=== PATIENT | female | born 1990 | race Caucasian/White ===

== ENCOUNTER → 2017-01-26 | Emergency (ER) | payer SELFPAY ==
[~2017-01-26] MED LIST: ACETAMINOPHEN 325 MG TABLET ONE
[2017-01-29 09:57] LABS: HCG UR OBC PASS
[2017-01-30 10:37] LABS: BLOOD UREA NITROGEN 11 mg/dL (7-18)
== END ==
LOC: ED 15:46
DX: R10.30 Lower abdominal pain, unspecified (principal)
CPT/HCPCS: 36415; 74020; 76830; 80048; 80076; 81003; 81025; 82040; 83690; 85025; 87086

== ENCOUNTER 2017-03-10 15:08 | Emergency (ER) | payer MEDICAID ==
[~2017-03-10] VITALS: Ht 157.5 cm; Wt 96.9 kg
[2017-03-10 15:10] VITALS: BP 132/74
[2017-03-10 16:03] LABS: HCG UR OBC PASS
== END 2017-03-10 17:06 | disposition home or self-care (01) ==
LOC: ED 17:00
DX: N39.0 Urinary tract infection, site not specified (principal); N30.90 Cystitis, unspecified without hematuria; J45.909 Unspecified asthma, uncomplicated; Z98.890 Other specified postprocedural states
CPT/HCPCS: 81001; 81025; 87086; 87210; 87491; 87591; 87808; 99284

== ENCOUNTER 2017-04-29 20:01 | Emergency (ER) | payer MEDICAID ==
[~2017-04-29] VITALS: Ht 154.9 cm; Wt 97.8 kg
[2017-04-29 20:09] VITALS: BP 126/81
[2017-04-29] MEDS ORDERED: LIDOCAINE 1%, 20ML SQ ONE (21:00)
[2017-04-29] MEDS ORDERED: LIDOCAINE 1%, 20ML ONE (22:00)
== END 2017-04-29 22:54 | disposition home or self-care (01) ==
LOC: ED 22:48
DX: S40.812A Abrasion of left upper arm, initial encounter (principal); J45.909 Unspecified asthma, uncomplicated; X58.XXXA Exposure to other specified factors, initial encounter; Y93.89 Activity, other specified; Y99.8 Other external cause status; Y92.89 Other specified places as the place of occurrence of the external cause
CPT/HCPCS: 96372; 99283; J3490

== ENCOUNTER 2017-11-26 22:10 | Emergency (ER) | payer SELFPAY ==
[~2017-11-26] VITALS: Ht 154.9 cm; Wt 97.4 kg
[2017-11-26 23:45] LABS: HCG UR SG 1.025 (1.003-1.030); MICROSCOPIC AUTO
[2017-11-26 23:48] LABS: CULTURE INDICATED? NO
[2017-11-27 00:10] VITALS: BP 136/88
== END 2017-11-27 00:10 | disposition home or self-care (01) ==
LOC: ED 23:46
DX: R11.0 Nausea (principal)
CPT/HCPCS: 81001; 81025; 99284

== ENCOUNTER 2019-03-31 17:41 | Emergency (ER) | payer MEDICAID | END 2019-03-31 18:56 | disposition left against medical advice (07) | LOC: ED 18:00 | DX: R10.9 Unspecified abdominal pain (principal); Z53.21 Procedure and treatment not carried out due to patient leaving prior to being seen by health care provider ==

== ENCOUNTER 2019-03-31 18:18 | Outpatient (CLI) | payer SELFPAY ==
[~2019-03-31] VITALS: Ht 154.9 cm; Wt 100.0 kg
== END 2019-03-31 22:30 | disposition home or self-care (01) ==
LOC: LDOP 18:18
PROVIDERS: ATTEND Obstetrics & Gynecology
DX: O26.893 Other specified pregnancy related conditions, third trimester (principal); R10.9 Unspecified abdominal pain; Z3A.32 32 weeks gestation of pregnancy
CPT/HCPCS: 36415; 59025; 76815; 80053; 80307; 81001; 85025; 87086; 94640; 99201; G0463

== ENCOUNTER 2020-08-08 16:59 | Emergency (ER) | payer MEDICAID ==
[~2020-08-08] VITALS: Ht 154.9 cm; Wt 104.2 kg
[2020-08-08 17:55] LABS: HCG UR SG 1.022 (1.003-1.030); MICROSCOPIC NOT IND
--- NOTE | 2020-08-08 18:00 | NUR ---
REPORT FROM BEBO MERLOS. FIRST CONTACT WITH PT. PT SITTING UP IN [facility], NAD NOTED. DENIES NEED FOR PAIN/NAUSEA MEDICATIONS. BP/SPO2 MONITOR ON, VSS. PT READIED FOR PELVIC EXAM. PT UPDATED TO POC (PELVIC/LABS/RESULTS/DISPO) AND DEMONSTRATES UNDERSTANDING.
[2020-08-08 18:22] LABS: BASOPHILS % (AUTO) 1 % (0-1); EOSINOPHILS % (AUTO) 2 % (1-7); LYMPHOCYTES % (AUTO) 31 % (22-44); MEAN CORPUSCULAR HEMOGLOBIN 25.8 pg (27.0-34.8); MEAN CORPUSCULAR HGB CONC 32.8 g/dL (32.4-35.8); MEAN PLATELET VOLUME 8.4 fL (7.4-10.4); MONOCYTES % (AUTO) 6 % (2-9); NEUTROPHILS % (AUTO) 61 % (42-75); PLATELET COUNT 403 x10^3/uL (130-400); RED CELL DISTRIBUTION WIDTH 16.6 % (9.6-15.2)
[2020-08-08 18:29] LABS: MD NO
[2020-08-08 18:32] LABS: ALBUMIN 3.6 g/dL (3.4-5.0); ANION GAP 3 mmol/L (5-15); CALCIUM 8.8 mg/dL (8.5-10.1); CHLORIDE 110 mmol/L (98-107)
--- NOTE | 2020-08-08 18:41 | NUR ---
PELVIC ULTRASOUND ORDERED PER DR MOHAN PINTO. POC IS US THEN D&C. ERP AWARE
--- NOTE | 2020-08-08 19:14 | NUR ---
PT RESTING IN [facility] USING CELL PHONE. NO DISTRESS NOTED. AWAITING PELVIC US
--- NOTE | 2020-08-08 19:53 | NUR ---
PT RETURNED FROM US. NAD NOTED. SITTING UP IN [facility], TYPING ON CELL PHONE
--- NOTE | 2020-08-08 20:33 | NUR ---
DC EDUCATION PROVIDED, PT DEMONSTRATES UNDERSTANDING. PT AMBULATED STEADILY TO DC WITH RN
[2020-08-08 20:34] VITALS: BP 126/70
== END 2020-08-08 20:35 | disposition home or self-care (01) ==
LOC: ED 18:19
DX: D25.9 Leiomyoma of uterus, unspecified (principal)
CPT/HCPCS: 36415; 76830; 80048; 81003; 81025; 82040; 85025; 99284

== ENCOUNTER 2021-03-07 20:24 | Emergency (ER) | payer MEDICAID ==
[~2021-03-07] VITALS: Ht 154.9 cm; Wt 107.3 kg
--- NOTE | 2021-03-07 21:10 | NUR ---
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 TO ROOM FROM LOBBY AT THIS TIME. AMBULATORY WITH STEADY GAIT.
[2021-03-07] MEDS ORDERED: ONDANSETRON 2MG/ML, 2ML IVPush ONE (21:30)
[2021-03-07] MEDS ORDERED: MORPHINE SULFATE 4 MG/ML, 1ML IVPush PRN (21:30)
[2021-03-07] MEDS ORDERED: SODIUM CHLORIDE FLUSH 10ML SYR IVF ONE (21:30)
[2021-03-07] MEDS ORDERED: MORPHINE SULFATE 4 MG/ML, 1ML ONE (21:38)
[2021-03-07] MEDS ORDERED: ONDANSETRON 2MG/ML, 2ML ONE (21:38)
[2021-03-07 21:39] LABS: MICROSCOPIC INDICATED
[2021-03-07 21:43] LABS: BASOPHILS % (AUTO) 1 % (0-1); EOSINOPHILS % (AUTO) 3 % (1-7); LYMPHOCYTES % (AUTO) 37 % (22-44); MEAN CORPUSCULAR HEMOGLOBIN 26.1 pg (27.0-34.8); MEAN CORPUSCULAR HGB CONC 32.9 g/dL (32.4-35.8); MEAN PLATELET VOLUME 8.1 fL (7.4-10.4); MONOCYTES % (AUTO) 5 % (2-9); NEUTROPHILS % (AUTO) 54 % (42-75); PLATELET COUNT 367 x10^3/uL (130-400); RED CELL DISTRIBUTION WIDTH 16.9 % (9.6-15.2)
--- NOTE | 2021-03-07 21:47 | NUR ---
PT PROVIDED URINE SAMPLE, UA COLLECTED AND SENT TO LAB. PIV PLACED, LABS DRAWN AND COLLECTED BY MAINTENANCE CONSTRUCTION HELPER. PAIN MEDS ADMIN PER OCT. PT PLACED ON OXYGEN FOR SAFETY. CALL LIGHT IN REACH. WARM BLANKET PROVIDED.
[2021-03-07 21:54] LABS: ALANINE AMINOTRANSFERASE 17 U/L (12-78); ALBUMIN 3.6 g/dL (3.4-5.0); ANION GAP 5 mmol/L (5-15); CALCIUM 8.6 mg/dL (8.5-10.1); CHLORIDE 109 mmol/L (98-107); CREATININE 0.66 mg/dL (0.55-1.02)
[2021-03-07 21:59] LABS: ALKALINE PHOSPHATASE 77 U/L (45-117); BILIRUBIN,TOTAL 0.2 mg/dL (0.2-1.0)
--- NOTE | 2021-03-07 22:10 | NUR ---
US AT BEDSIDE
--- NOTE | 2021-03-07 22:37 | NUR ---
RECEIVED N/O FOR CT
--- NOTE | 2021-03-07 22:39 | NUR ---
PT GOING TO CT.
--- NOTE | 2021-03-07 22:46 | NUR ---
REPORT FROM TALIA
[2021-03-07] MEDS ORDERED: OMNIPAQUE 350 MG/ML, 100ML BOTTLE ONE (22:53)
[2021-03-07 23:02] VITALS: BP 121/83
[2021-03-07] MEDS ORDERED: POTASSIUM CHLORIDE 20 MEQ PACKET PO ONE (23:28)
[2021-03-07] MEDS ORDERED: POTASSIUM CHLORIDE 20 MEQ PACKET ONE (23:30)
--- NOTE | 2021-03-07 23:46 | NUR ---
Patient given discharge instructions and they have confirmed that they understand the instructions. Patient ambulatory with steady gait. NAD, all questions answered appropriately, denies additional needs at this time. No personal belongings left in room after discharge.
== END 2021-03-07 23:56 | disposition home or self-care (01) ==
LOC: ED 20:54
DX: R10.30 Lower abdominal pain, unspecified (principal); E87.6 Hypokalemia
CPT/HCPCS: 36415; 74177; 76830; 80053; 81001; 83690; 84703; 85025; 96374; 96375; 99285; J2270; J2405; Q9967